=== PATIENT | male | born 1965 | race Caucasian/White ===

== ENCOUNTER → 2023-10-17 09:30 | Outpatient (REF) | payer BC, SELFPAY | LOC: RAD 09:30 | PROVIDERS: ATTENDING PHYSICIAN Family Medicine | DX: I10 Essential (primary) hypertension (principal); E78.2 Mixed hyperlipidemia; Z82.49 Family history of ischemic heart disease and other diseases of the circulatory system | CPT/HCPCS: 76770 ==

== ENCOUNTER → 2024-05-29 13:27 | Outpatient (REF) | payer BC, SELFPAY | LOC: RCS 13:27 | PROVIDERS: ATTENDING PHYSICIAN Internal Medicine Cardiovascular Disease; FAMILY PHYSICIAN Family Medicine | DX: R06.09 Other forms of dyspnea (principal) | CPT/HCPCS: 93017; 93350 ==

== ENCOUNTER 2024-12-20 00:25 | Emergency (ER) | payer BC, SELFPAY ==
[2024-12-20 00:28] VITALS: BP 152/83; BMI 29.3
[2024-12-20] MEDS: VALIUM 5 MG PO (01:19)
[2024-12-20 02:00] VITALS: BP 122/76
--- NOTE | 2024-12-20 02:08 | ED.GENMED ---
History of Present Illness
General
Chief Complaint: Back Pain
Source: patient
Exam Limitations: none
Time Seen by Provider: 12/20/24 00:48
Nursing documentation reviewed up to this point in time: agreed with
History of Present Illness
History of Present Illness:
Pleasant 59-year-old male presents to the emergency department with low back pain. He states he was lifting weights on Monday and his pain has been exacerbated since. He denies bowel or bladder retention or incontinence but states that the pain
is radiating into his right leg. He reports lying on the couch this evening when the pain came on. He states he was unable to get off the couch without significant pain. He was seen by his orthopedic surgeon yesterday at [facility] on gabapentin and
Flexeril. He is scheduled for an MRI on Monday morning.
Past History
Past History
ED Past Medical History: None
ED Past Surgical History: None
Social History
Tobacco: Non-smoker
Alcohol: None
Drug: None
Living: with family
Review of Systems
Review of Systems
Allergies reviewed?: Yes
All Other Systems: ROS reviewed and negative except as documented in HPI and ROS
Constitutional: Reports no symptoms
EENT: Reports no symptoms
Respiratory: Reports no symptoms
Cardiac: Reports no symptoms
ABD/GI: Reports no symptoms
: Reports no symptoms
Musculoskeletal: Reports muscle stiffness and back pain
Skin: Reports no symptoms
Neurological: Reports no symptoms
Endocrine: Reports no symptoms
Hematologic/Lymphatic: Reports no symptoms
Psychiatric: Reports anxiety
Phy Exam
General Physical Exam
General Presentation: well appearing and no apparent distress
General Skin: warm and dry
General Habitus: normal
General Mental: alert
General Hydration: appears well hydrated
ENT Exam
ENT Exam: EOMI, pharynx normal, neck supple and normocephalic
Eye Exam
Eye Exam: PERRL, cornea clear and conjunctiva normal
Cardiovascular Exam
Cardiovascular Exam: regular rate/rhythm, no edema, no murmur and normal peripheral pulses
Pulmonary Exam
Pulmonary Exam: lungs clear, no respiratory distress, no rales, no crackles, no rhonchi, no stridor, no wheezing and no cough
Gastrointestinal Exam
Gastrointestinal Exam: normal bowel sounds, non tender, soft, no organomegaly, no pulsatile mass and non distended
Neurological Exam
Neurological Exam: alert, oriented x3, no motor deficits and speech normal
Musculoskeletal Exam
Musculoskeletal Exam: full ROM, no edema, back tenderness, neuro vasc intact and other (Positive straight leg raising test on the right.)
Skin Exam
Skin Exam: normal color, warm/dry, no rash and no petechia
Psychiatric Exam
Psychiatric Exam: normal mood/affect
Course
Orders/Labs/Results
Orders:
Orders
12/20/24 01:07
Diazepam [Valium] 5 mg PO NOW STA
12/20/24 02:08
CT Lumbar Spine W/o Iv Contras Urgent
Comment:
Reason For Exam: low back pain, new onset
Oxycodone/Acetaminophen [Percocet 5/325] 2 tablet PO NOW STA
Vital Signs
Initial and Last Documented VS:
Initial Vital Signs
Temp Pulse Resp BP Pulse Ox
98.0 F 87 20 152/83 98
12/20/24 00:28 12/20/24 00:28 12/20/24 00:28 12/20/24 00:28 12/20/24 00:28
Last Documented Vital Signs
Temp Pulse Resp BP Pulse Ox
98.0 F 59 20 133/78 94
12/20/24 00:28 12/20/24 04:05 12/20/24 04:05 12/20/24 04:05 12/20/24 04:05
*Critical Care Note
Total Time (30-74mins, 75-104mins- exclusive of procedures): Not Applicable
Update Note
Update Note:
CT LUMBAR SPINE
IMPRESSION:
No acute fracture or traumatic malalignment.
No significant soft tissue abnormality. Disc bulge at L3-4 which contributes to at least moderate canal stenosis. Moderate to severe bilateral L3-4 neural foraminal narrowing. Moderate bilateral L4-5 neural foraminal narrowing.
Likely partial visualization of left adrenal nodule measuring up to 2.2 cm
Patient was able to ambulate without much issue. Patient to be discharged home. Will continue to get his MRI previously scheduled for this Monday.
ED Attending Note
-
Portions of this chart may have been created with voice recognition software.� Occasional wrong word or��sound alike� substitutions may have occurred due to the inherent limitations of voice recognition software.
Discharge Plan
Departure
Patient Disposition: Home (Routine Discharge)
Date of Disposition: 12/20/24
Time of Disposition: 04:08
Patient with high blood pressure during this ER visit?: Yes
Condition: Good
Discharge Problem:
Low back pain
Instructions: Low Back Pain (DC), BLOOD PRESSURE
Prescriptions:
New
oxycodone-acetaminophen [Percocet] 5-325 mg tablet
1 tab PO Q6HPRN PRN (Reason: pain) Qty: 20 0RF
Referrals:
[facility] [Provider Group]
UNKNOWN - PT DOES,NOT KNOW [Family Provider] -
Activity Restrictions/Additional Instructions:
Your prescriptions were sent electronically to the pharmacy that you specified.\\\\
Please keep your appointment for your MRI previously scheduled for this Monday.
It was a pleasure meeting you and taking part in your care. We hope for your continued healing and wellness.
Please read discharge instructions in their entirety. However, they are for general education and may not describe your exact diagnosis at discharge. Information on your ER visit and medical conditions were discussed with you along with appropriate
follow up information...
If indicated, please take your medications as instructed and indicated on discharge paperwork.
Please schedule a follow up appointment as directed. Call to schedule an appointment
Please return to the emergency department with ANY change in, persisting, or worsening of symptoms. If any of your symptoms do not improve, or persist, or become more severe within 6-12 hours, please return to the emergency department for further
care.
Please return to the emergency department if you develop a headache, neck pain/stiffness, fever greater than 100.4F, chest pain, shortness of breath, persistent nausea, vomiting, slurred speech, difficulty walking, numbness/tingling, weakness, signs
of infection or any other symptoms that are worrisome to you.
If you have any questions or concerns please do not hesitate to call the Hospital at or E-mail me directly at [email or web address]
Interventions
Interventions:
*Risk Screen - Suicide Last Done: 12/20/24 00:28
*General Assessment Last Done: 12/20/24 00:50
*Neglect/Abuse Screening Last Done: 12/20/24 00:28
ED- Fall Risk Assessment Last Done: 12/20/24 00:50
*ED COVID-19 Vaccine History Last Done: 12/20/24 00:50
*Nursing Disposition Last Done: 12/20/24 04:30
ED-Musculoskeletal Assessment Last Done: 12/20/24 00:50
Discharge Date and Time
Discharge Date/Time: 12/20/24 04:30
Print Language: CROATIAN
[2024-12-20] MEDS: PERCOCET 5/325 2 TABLET PO (02:27)
[2024-12-20 03:00] VITALS: BP 123/69
[2024-12-20 04:00] VITALS: BP 133/78
[2024-12-20 04:05] VITALS: BP 133/78
== END 2024-12-20 04:30 | disposition home or self-care (01) ==
LOC: EMR 00:25
PROVIDERS: EMERGENCY PHYSICIAN Student in an Organized Health Care Education/Training Program
DX: M54.50 Low back pain, unspecified (principal)
CPT/HCPCS: 99284; 72131

== ENCOUNTER → 2025-01-14 07:57 | Outpatient (REF) | payer BC, SELFPAY | LOC: RAD 07:57 | PROVIDERS: ATTENDING PHYSICIAN Family Medicine | DX: E27.9 Disorder of adrenal gland, unspecified (principal) | CPT/HCPCS: 74170; Q9967 ==

== ENCOUNTER 2025-07-23 06:23 | Day surgery (SDC) | payer BC, SELFPAY | END 2025-07-23 11:12 | disposition home or self-care (01) | LOC: GI 06:23 | PROVIDERS: ATTENDING PHYSICIAN Internal Medicine Gastroenterology | DX: Z12.11 Encounter for screening for malignant neoplasm of colon (principal); K57.30 Diverticulosis of large intestine without perforation or abscess without bleeding; K64.8 Other hemorrhoids; D12.5 Benign neoplasm of sigmoid colon; D12.8 Benign neoplasm of rectum | CPT/HCPCS: 45385; 45380; 88305 ==